=== PATIENT | female | born 1950 | race Caucasian/White ===

== ENCOUNTER 2021-10-21 11:23 | Outpatient (CLI) | payer OTHER, MEDICARE | END 2021-10-21 11:24 | disposition home or self-care (01) | LOC: SCSRAD 11:23 | PROVIDERS: ATTEND Family Medicine | DX: V89.2XXA Person injured in unspecified motor-vehicle accident, traffic, initial encounter (principal); M47.812 Spondylosis without myelopathy or radiculopathy, cervical region; M50.30 Other cervical disc degeneration, unspecified cervical region | CPT/HCPCS: 72040 ==

== ENCOUNTER 2021-10-24 13:59 | Outpatient (CLI) | payer MEDICARE | END 2021-10-24 14:00 | disposition home or self-care (01) | LOC: SCSMRI 13:59 | PROVIDERS: ATTEND Family Medicine | DX: M54.2 Cervicalgia (principal); M47.812 Spondylosis without myelopathy or radiculopathy, cervical region | CPT/HCPCS: 72156; 82565 ==